=== PATIENT | female | born 1985 | race Caucasian/White ===

== ENCOUNTER 2024-06-13 10:46 | Day surgery (SDC) | payer OTHER ==
[2024-06-13] MEDS ORDERED: LACTATED RINGERS 1,000 ML BAG ONE (11:30)
[2024-06-13] MEDS ORDERED: PROPOFOL 10 MG/ML 20 ML VIAL IV ONE (12:10)
[2024-06-13] MEDS ORDERED: LIDOCAINE 1% INJ 10MG/ML (20 ML MDV) ONE (12:10)
--- NOTE | 2024-08-22 17:19 | P.GSHP ---
History of Present Illness H&P Date: 06/13/24 CHIEF COMPLAINT: GERD HISTORY OF PRESENT ILLNESS: The patient is a 39-year-old female who presents reports gastroesophageal reflux disease. Upper endoscopy was offered for further evaluation and management. PAST MEDICAL HISTORY: Please see list. PAST SURGICAL HISTORY: Please see list. MEDICATIONS: Please see list. ALLERGIES: Please see list. SOCIAL HISTORY: No illicit drug use FAMILY HISTORY: No reports of Crohn disease or ulcerative colitis. REVIEW OF ORGAN SYSTEMS: CONSTITUTIONAL: No reports of fevers or chills. GI: Denies any blood in stools or constipation. PHYSICAL EXAM: VITAL SIGNS: Stable GENERAL: Well-developed and pleasant in no acute distress. HEENT: No scleral icterus. Extraocular movements grossly intact. Moist buccal mucosa. NECK: Supple without lymphadenopathy. CHEST: Unlabored respirations. Equal bilateral excursions. CARDIOVASCULAR: Regular rate and rhythm. Distal 2+ pulses. ABDOMEN: Soft, nondistended. MUSCULOSKELETAL: No clubbing, cyanosis, or edema. ASSESSMENT: 1. Gastroesophageal reflux disease PLAN: 1. Recommend proceeding with an upper endoscopy Past Medical History Past Medical History: Fibromyalgia History of Any Multi-Drug Resistant Organisms: None Reported Past Surgical History: Section Additional Past Surgical History / Comment(s): c sectionx2 Past Anesthesia/Blood Transfusion Reactions: No Reported Reaction Past Psychological History: Anxiety, PTSD Smoking Status: Former smoker, Vaper Past Alcohol Use History: None Reported Past Drug Use History: Marijuana Additional Drug Use History / Comment(s): medical marijuana - Past Family History Mother Additional Family Medical History / Comment(s): depression Medications and Allergies Home Medications Medication Instructions Recorded Confirmed Type Cetirizine HCl [Zyrtec] 10 mg PO DAILY 05/04/24 08/10/24 History Omeprazole 40 mg PO DAILY 05/04/24 08/10/24 History Allergies Allergy/AdvReac Type Severity Reaction Status Date / Time No Known Allergies Allergy Verified 08/10/24 15:10
--- NOTE | 2024-08-22 17:23 | P.PCN ---
Date of Procedure: 06/13/24 Description of Procedure: PREOPERATIVE DIAGNOSIS: Gastroesophageal reflux disease. Morbid obesity. POSTOPERATIVE DIAGNOSIS: Gastroesophageal reflux disease. Morbid obesity. Gastritis. OPERATION: Esophagogastroduodenoscopy with biopsies along esophagus, antrum and duodenum SURGEON: Angy Perez MD ANESTHESIA: MAC. INDICATIONS: The patient is a 47-year-old female who presents with reflux disease. Benefits and risks of the procedure were described. Informed consent was obtained. DESCRIPTION: The patient was brought into the endoscopy suite and laid in the left lateral decubitus position. An Olympus gastroscope was passed along the posterior oropharynx down to the distal esophagus where the squamocolumnar junction was encountered at 35 cm from the incisors. The stomach was entered and no bile reflux was found. Additional findings are listed below. Biopsies with cold forceps were obtained of the antrum. The first through third portion of the duodenum was examined. Retroflexion of the scope confirmed Hill grade 2 lower esophageal valve. The squamocolumnar junction demonstrated LA grade A erosive esophagitis. The stomach was desufflated. The patient tolerated the procedure well. FINDINGS: Squamocolumnar junction 35 cm from the incisors. Diaphragmatic hiatus at 35 cm. Hill grade 2 lower esophageal valve. LA grade A erosive esophagitis. Biopsies obtained Biopsies obtained of the duodenum. Chronic gastritis with biopsies obtained. RECOMMENDATIONS: Upper endoscopy as needed.
== END 2024-06-13 12:59 ==
LOC: ORWHC2ENDO 10:46
PROVIDERS: ATTEND Surgery Plastic and Reconstructive Surgery
DX: K29.50 Unspecified chronic gastritis without bleeding (principal); K21.00 Gastro-esophageal reflux disease with esophagitis, without bleeding; K29.80 Duodenitis without bleeding; E66.01 Morbid (severe) obesity due to excess calories; M79.7 Fibromyalgia; Z87.891 Personal history of nicotine dependence
CPT/HCPCS: 43239; 81025; 88305

== ENCOUNTER → 2024-08-10 | Outpatient (CLI) | payer OTHER ==
[2024-08-10 15:14] VITALS: BP 115/81; PULSE 74; RESP 16; TEMP 98.3; BMI 48.9
--- NOTE | 2024-08-10 15:24 | P.BASOAP ---
Subjective Progress Note Date: 08/10/24 She has gained weight 13 pounds in 3 months. Breakfast oatimeal, fruit, orange juice. NO snacks. Path negative. Yogurt. Dinner chicken and risk. 50 grams of protein. Needs 86 grams. Labs review. Missing labs, EKG, and urine. She wants the sleeve, Objective - Vital Signs Vital signs: Vital Signs Temp 98.3 F 08/10/24 15:10 Pulse 74 08/10/24 15:10 Resp 16 08/10/24 15:10 BP 115/81 08/10/24 15:10 Pulse Ox FiO2 Intake & Output 08/09/24 08/10/24 08/10/24 18:59 06:59 18:59 Weight 123.377 kg Assessment/Plan Plan: Date: 08/10/24 Initial Weight: 117.736 kg Initial BMI: 46.7 Current Weight: 123.377 kg Current BMI: 48.9 Type of Surgery: Total Volume in Band: Previous Volume: Volume Removed: Volume Added: Band Size:
== END ==
LOC: BARWHC3 14:16
PROVIDERS: ATTEND Surgery Plastic and Reconstructive Surgery
DX: E66.01 Morbid (severe) obesity due to excess calories (principal); Z68.42 Body mass index [BMI] 45.0-49.9, adult
CPT/HCPCS: 99211

== ENCOUNTER → 2025-01-20 | Outpatient (CLI) | payer OTHER ==
[2025-01-20 13:04] LABS: Partial Thromboplastin Time 22.2 sec (22.0-30.0); Prothrombin Time 10.8 sec (10.0-12.5)
[2025-01-20 18:19] LABS: HCT 43.7 % (37.2-46.3); HGB 13.6 g/dL (12.0-15.0); MCH 28.2 pg (27.0-32.0); MCHC 31.1 g/dL (32.0-37.0); MCV 90.7 FL (80.0-97.0); Mean Platelet Volume 11.6 FL (9.5-12.2); NRBC Per 100 WBC 0 X 10*3/uL (0.00-0.01); Platelet Count 332 X 10*3/uL (140-440); RBC 4.82 X 10*6/uL (4.10-5.20); RDW 13.6 % (11.5-14.5); WBC 7.26 X 10*3/uL (4.50-10.00)
[2025-01-20 19:19] LABS: Chol/HDL Ratio 5.64 Ratio; LDL Cholesterol,Calculated 106.6 mg/dL (0.0-131.0); Magnesium 2.1 mg/dL (1.5-2.4)
[2025-01-20 19:20] LABS: % Iron Saturation 10.03 (12.00-45.00); ALT 43 U/L (8-44); AST 26 U/L (13-35); Albumin 4.1 g/dL (3.8-4.9); Albumin/Globulin Ratio 1.78 Ratio (1.60-3.17); Alkaline Phosphatase 80 U/L (41-126); BUN/Creat Ratio 25.88 Ratio (12.00-20.00); Blood Urea Nitrogen 20.7 mg/dL (9.0-27.0); Calcium 9.4 mg/dL (8.7-10.3); Carbon Dioxide 22.5 mmol/L (21.6-31.8); Chloride 106 mmol/L (96-109); Ferritin 29.8 ng/mL (10.0-291.0); Globulin 2.3 g/dL (1.6-3.3); Glucose 99 mg/dL (70-110); Iron 35 UG/DL (50-170); Phosphorus 3.2 mg/dL (2.4-5.1); Potassium 4.6 mmol/L (3.5-5.5); Sodium 140 mmol/L (135-145); Total Bilirubin 0.2 mg/dL (0.3-1.2); Total Iron Binding Capacity 349 UG/DL (228-460); Total Protein 6.4 g/dL (6.2-8.2)
[2025-01-20 21:45] LABS: Prealbumin 21.2 mg/dL (18.0-42.0)
== END | disposition home or self-care (01) ==
LOC: LABWHC1 11:54
PROVIDERS: ATTEND Surgery Plastic and Reconstructive Surgery
DX: E55.9 Vitamin D deficiency, unspecified (principal); E66.01 Morbid (severe) obesity due to excess calories; E44.0 Moderate protein-calorie malnutrition; E45 Retarded development following protein-calorie malnutrition; E89.1 Postprocedural hypoinsulinemia; D50.8 Other iron deficiency anemias; D50.9 Iron deficiency anemia, unspecified; K74.1 Hepatic sclerosis; N19 Unspecified kidney failure; K50.90 Crohn's disease, unspecified, without complications; T56.894A Toxic effect of other metals, undetermined, initial encounter
CPT/HCPCS: 84255; 84134; 84425; 80061; 80053; 82607; 82728; 82525; 82746; 83540; 83550; 83735; 84100; 84443; 84590; 84630; 85027; 85610; 85730; 82306; 83970; 80307; 93005; 36415; G0480; 80323

== ENCOUNTER 2025-01-30 09:57 | Day surgery (SDC) | payer OTHER ==
--- NOTE | 2025-01-30 07:50 | P.GSHP ---
History of Present Illness H&P Date: 01/30/25 CHIEF COMPLAINT: Morbid obesity HISTORY OF PRESENT ILLNESS: Vanessa Gibson is a 60-year-old female who comes with lifelong morbid obesity. As result of morbid obesity, she has developed osteoarthritis of the hips and knees. She has completed medical supervised weight loss. She completed medical including cardiac assessment. She has completed psychological risk assessment. All surgical options were reviewed. She elected for sleeve gastrectomy. At height of 5 feet 3 inches, her ideal body weight is 140 pounds. She comes in 256 pounds. Her body mass index is 45.3. She is 116 pounds overweight. Her highest weight 273 pounds, body mass index 48.4. PAST MEDICAL HISTORY: 1. Morbid obesity due to excess calories 2. Body mass index of 48.4 3. Osteoarthritis of the knees. 4. Osteoarthritis of the lower back. 5. Gastroesophageal reflux disease 6. Fibromyalgia 7. Migraines 8. Generalized anxiety disorder 9. Posttraumatic stress disorder PAST SURGICAL HISTORY: 1. Upper endoscopy 2. section HOME MEDICATIONS: Home Medications Medication Instructions Recorded Confirmed Omeprazole 40 mg PO DAILY 05/04/24 01/26/25 Brexpiprazole [Rexulti] 10 mg PO DAILY 01/25/25 01/26/25 Fexofenadine HCl [Maine Allergy] 180 mg PO DAILY 01/25/25 01/26/25 Propranolol [Inderal] 10 mg PO DAILY 01/25/25 01/26/25 Topiramate 25 mg PO BID 01/25/25 01/26/25 lamoTRIgine [LaMICtal] 100 mg PO DAILY 01/25/25 01/26/25 ALLERGIES: Allergies Allergy/AdvReac Type Severity Reaction Status Date / Time No Known Allergies Allergy Verified 01/26/25 13:47 SOCIAL HISTORY: Past tobacco use. FAMILY HISTORY: No family history of ulcerative colitis disease or Crohn's disease. Family history of morbid obesity. No lupus in the family. No reports of stomach or esophageal cancer. REVIEW OF ORGAN SYSTEMS: CONSTITUTIONAL: At height of 5 feet 3 inches, her ideal body weight is 140 pounds. She comes in 256 pounds. Her body mass index is 45.3. She is 116 pounds overweight. Her highest weight 273 pounds, body mass index 48.4. HEENT: Denies any active troubles with vision or hearing. ENDOCRINE: Denies diabetes. Denies hypothyroidism. CARDIOVASCULAR: Past reports of palpitations or heart attacks or chest pain. RESPIRATORY: Has daytime somnolence. GASTROINTESTINAL: Denies any bright red blood per rectum. Has gastroesophageal reflux disease. MUSCULOSKELETAL: Has lower back pain and joint pain. Has osteoarthritis of the knees. NEURO: No headaches. No seizure disorders. PSYCH: Has depression. No suicidal ideation. RHEUMATOLOGIC: No lupus. No rheumatoid arthritis. HEMATOLOGIC: Denies any abnormal bleeding or bruising. No personal history of DVTs. SKIN: Has rash. No skin cancer. PHYSICAL EXAM: VITAL SIGNS: Height 5 foot 3 inches, weight 256 pounds. BMI 45.3 GENERAL: Well-developed in no acute distress. HEENT: No scleral icterus. Extraocular movements grossly intact. Hears conversational speech. No nasal drainage. NECK: Supple without lymphadenopathy. CHEST: Nonlabored respirations with equal bilateral excursions. CARDIOVASCULAR: Regular rate and regular rhythm. Distal 2+ pulses. ABDOMEN: Obese, soft, nontender, nondistended. MUSCULOSKELETAL: No clubbing, cyanosis. NEURO: No focal or lateralizing signs. Cranial nerves 2 through 12 grossly within normal limits. PSYCH: Appropriate affect. Alert and oriented to person, place and time. SKIN: Good skin turgor. Well perfused. ASSESSMENT: 1. Morbid obesity due to excess calories 2. Body mass index of 48.4 3. Osteoarthritis of the knees. 4. Osteoarthritis of the lower back. 5. Gastroesophageal reflux disease 6. Fibromyalgia 7. Migraines 8. Generalized anxiety disorder 9. Posttraumatic stress disorder PLAN: 1. Bariatric options between a sleeve, band and a Alejandrina-en-Y gastric bypass were reviewed in detail. The patient elected for sleeve gastrectomy. Robotic assisted approach described. 2. The [place] [facility] Data was also reviewed with benefits and risks as described. 3. An 8 page second-generation bariatric consent form was reviewed in detail including potential of bleeding, infection, leaks, adequate weight loss, nutritional deficiencies which the patient demonstrated understanding of the risks. 4. A 2 week high-protein low caloric 800 kcal diet described to address hepatomegaly. 5. Preoperative labs including complete metabolic panel and CBC with type and screen recommended. 6. DVT prophylaxis per [place] [facility]. 7. Antibiotic prophylaxis. 8. Inpatient hospitalization anticipated for more than 2 nights. 9. All questions and concerns were addressed with the patient. 10. Overall, patient has expressed understanding of bariatric care including postoperative diet and commitment of lifestyle. Patient should benefit from surgical intervention for correction of her morbid obesity. Past Medical History Past Medical History: Fibromyalgia, GERD/Reflux, Osteoarthritis (OA) Additional Past Medical History / Comment(s): hand tremors, migraines History of Any Multi-Drug Resistant Organisms: None Reported Past Surgical History: Section Additional Past Surgical History / Comment(s): c sectionx2, EGD Past Anesthesia/Blood Transfusion Reactions: No Reported Reaction Smoking Status: Former smoker - Past Family History Mother Additional Family Medical History / Comment(s): depression Medications and Allergies Home Medications Medication Instructions Recorded Confirmed Type Omeprazole 40 mg PO DAILY 05/04/24 01/26/25 History Brexpiprazole [Rexulti] 10 mg PO DAILY 01/25/25 01/26/25 History Fexofenadine HCl [Maine Allergy] 180 mg PO DAILY 01/25/25 01/26/25 History Propranolol [Inderal] 10 mg PO DAILY 01/25/25 01/26/25 History Topiramate 25 mg PO BID 01/25/25 01/26/25 History lamoTRIgine [LaMICtal] 100 mg PO DAILY 01/25/25 01/26/25 History Allergies Allergy/AdvReac Type Severity Reaction Status Date / Time No Known Allergies Allergy Verified 01/26/25 13:47
[~2025-01-30 09:57] MED LIST: HYDROmorphone 0.5 MG/0.5 ML SYRINGE IVP PRN; SODIUM CHLORIDE 0.9% 1,000 ML IV ONE; ceFAZolin 2 GM in DEXTROSE 5% IN WATER 50 ML IVPB PRN
[2025-01-30] MEDS: IV FLUID CONTINUATION 1,000 ML IV ONE ×3 (10:30→10:45)
[2025-01-30 10:43] VITALS: RESP 16; TEMP 97.9
[2025-01-30] MEDS: LACTATED RINGERS 1,000 ML IV SCH (10:49)
[2025-01-30] MEDS: ONDANSETRON 4 MG/2 ML VIAL IVP PRN (10:50)
[2025-01-30] MEDS: ACETAMINOPHEN TAB 500 MG TAB PO PRN (10:50)
[2025-01-30] MEDS: ENOXAPARIN 40 MG/0.4 ML SYRINGE SQ PRN (10:51)
[2025-01-30] MEDS: CHLORHEXIDINE GLUCONATE 15 ML CUP MUCOUS MEM STA (10:51)
[2025-01-30] MEDS: SCOPOLAMINE 1 MG/72 HR PATCH TRANSDERM STA (10:51)
[2025-01-30] MEDS: DEXAMETHASONE SOD PHOSPHATE 4 MG/ML 1 ML VIAL IVP STA (10:51)
[2025-01-30] MEDS: ALVIMOPAN 12 MG CAPSULE PO PRN (11:13)
[2025-01-30] MEDS: MIDAZOLAM 2 MG/2 ML VIAL IV PRN (11:23)
--- NOTE | 2025-01-30 11:32 | P.ANPRN ---
Procedure Note - Anesthesia - Nerve Block Performed Bilateral Erector Spinae Single Time Out Performed: Yes Date of Procedure: 01/30/25 Procedure Start Time: : Procedure Stop Time: :30 Location of Patient: PreOp Indication: Acute Post-Operative Pain, Requested by Surgeon Sedation Type: Sedate with meaningful contact maintained Preparation: Sterile Prep Position: Prone Needle Types: Pajunk Needle Gauge: 21 Ultrasound used to visualize needle placement: Yes Ultrasound used to observe medication spread: Yes Injectate: 0.5% Ropivacaine (see comment for volume) (20 ml + 10 ml NS + 4 mg Dexamethasone per side) Blood Aspirated: No Pain Paresthesia on Injection Noted: No Resistance on Injection: Normal Image Stored and Saved: Yes Events: Uneventful and Well Tolerated
[2025-01-30] MEDS: fentaNYL (PF) 50 MCG/ML 2 ML AMP IVP PRN (11:36)
[2025-01-30] MEDS: PANTOPRAZOLE 40 MG/10 ML VIAL IVP STA (11:45)
[2025-01-30 11:53] VITALS: BP 101/59; PULSE 73
--- NOTE | 2025-01-30 13:13 | P.PN ---
Progress Note - Text Progress Note Date: 01/30/25 Notified by bariatric life insurance salesperson regarding patient has new active primary insurance through [facility]. Patient reports that she was not aware of the policy. Additional information obtained through the insurance providers demonstrating policy was active from November 26 through the end of October 25, 2025. Although patient has authorization through [facility], [employer] is primary insurance. [facility] Medicaid is secondary. As such, new insurance details given to patient to correct her insurance policy. Case canceled due to lack of coverage for [facility] and providers are not in network with [facility] insurance.
--- NOTE | 2025-01-30 13:18 | P.PN ---
Progress Note - Text Progress Note Date: 01/30/25 To whom it may concern: Elodia Latif is under my general surgical care. Patient was admitted to the hospital today 01/30/2025. She may return to work 01/31/2025. Patient will be scheduled for surgery for future date. Regards, Angy Perez MD FACS
== END 2025-01-30 13:26 ==
LOC: OR 09:57 → EDSTATUS 11:15 → UNDODISIN 13:26 → OR 13:26
PROVIDERS: ATTEND Surgery Plastic and Reconstructive Surgery
DX: E66.01 Morbid (severe) obesity due to excess calories (principal); K21.9 Gastro-esophageal reflux disease without esophagitis; M79.7 Fibromyalgia; F41.1 Generalized anxiety disorder; F43.10 Post-traumatic stress disorder, unspecified; M17.0 Bilateral primary osteoarthritis of knee; M47.816 Spondylosis without myelopathy or radiculopathy, lumbar region; G43.909 Migraine, unspecified, not intractable, without status migrainosus; M16.0 Bilateral primary osteoarthritis of hip; Z68.42 Body mass index [BMI] 45.0-49.9, adult; Z79.899 Other long term (current) drug therapy; Z87.891 Personal history of nicotine dependence; Z53.8 Procedure and treatment not carried out for other reasons; Z83.49 Family history of other endocrine, nutritional and metabolic diseases
CPT/HCPCS: 64468; 86900; 86901; 86850; J2250; J1100; J2405; J1650; J3010; J2470

== ENCOUNTER 2025-02-06 11:59 | Inpatient (IN) | payer OTHER ==
--- NOTE | 2025-02-06 09:40 | P.GSHP ---
History of Present Illness H&P Date: 02/06/25 CHIEF COMPLAINT: Morbid obesity HISTORY OF PRESENT ILLNESS: Elodia Latif is 39 year old female who comes with lifelong morbid obesity. As result of morbid obesity, she has developed osteoarthritis of the hips and knees. She has completed medical supervised weight loss. She completed medical including cardiac assessment. She has completed psychological risk assessment. All surgical options were reviewed. She elected for sleeve gastrectomy. Prior, patient's surgery had been canceled due to insurance issues 1 week ago. At height of 5 feet 3 inches, her ideal body weight is 140 pounds. She comes in 254 pounds. Her body mass index is 45.2. She is 114 pounds overweight. Her highest weight 273 pounds, body mass index 48.4. PAST MEDICAL HISTORY: 1. Morbid obesity due to excess calories 2. Body mass index of 48.4 3. Osteoarthritis of the knees. 4. Osteoarthritis of the lower back. 5. Gastroesophageal reflux disease 6. Fibromyalgia 7. Migraines 8. Generalized anxiety disorder 9. Posttraumatic stress disorder PAST SURGICAL HISTORY: 1. Upper endoscopy 2. section HOME MEDICATIONS: ALLERGIES: SOCIAL HISTORY: Past tobacco use. FAMILY HISTORY: No family history of ulcerative colitis disease or Crohn's disease. Family history of morbid obesity. No lupus in the family. No reports of stomach or esophageal cancer. REVIEW OF ORGAN SYSTEMS: CONSTITUTIONAL: At height of 5 feet 3 inches, her ideal body weight is 140 pounds. She comes in 256 pounds. Her body mass index is 45.3. She is 116 pounds overweight. Her highest weight 273 pounds, body mass index 48.4. HEENT: Denies any active troubles with vision or hearing. ENDOCRINE: Denies diabetes. Denies hypothyroidism. CARDIOVASCULAR: Past reports of palpitations or heart attacks or chest pain. RESPIRATORY: Has daytime somnolence. GASTROINTESTINAL: Denies any bright red blood per rectum. Has gastroesophageal reflux disease. MUSCULOSKELETAL: Has lower back pain and joint pain. Has osteoarthritis of the knees. NEURO: No headaches. No seizure disorders. PSYCH: Has depression. No suicidal ideation. RHEUMATOLOGIC: No lupus. No rheumatoid arthritis. HEMATOLOGIC: Denies any abnormal bleeding or bruising. No personal history of DVTs. SKIN: Has rash. No skin cancer. PHYSICAL EXAM: VITAL SIGNS: Height 5 foot 3 inches, weight 254 pounds. BMI 45.2 GENERAL: Well-developed in no acute distress. HEENT: No scleral icterus. Extraocular movements grossly intact. Hears conversational speech. No nasal drainage. NECK: Supple without lymphadenopathy. CHEST: Nonlabored respirations with equal bilateral excursions. CARDIOVASCULAR: Regular rate and regular rhythm. Distal 2+ pulses. ABDOMEN: Obese, soft, nontender, nondistended. MUSCULOSKELETAL: No clubbing, cyanosis. NEURO: No focal or lateralizing signs. Cranial nerves 2 through 12 grossly within normal limits. PSYCH: Appropriate affect. Alert and oriented to person, place and time. SKIN: Good skin turgor. Well perfused. ASSESSMENT: 1. Morbid obesity due to excess calories 2. Body mass index of 48.4 3. Osteoarthritis of the knees. 4. Osteoarthritis of the lower back. 5. Gastroesophageal reflux disease 6. Fibromyalgia 7. Migraines 8. Generalized anxiety disorder 9. Posttraumatic stress disorder PLAN: 1. Bariatric options between a sleeve, band and a Alejandrina-en-Y gastric bypass were reviewed in detail. The patient elected for sleeve gastrectomy. Robotic assisted approach described. 2. The [place] [facility] Data was also reviewed with benefits and risks as described. 3. An 8 page second-generation bariatric consent form was reviewed in detail including potential of bleeding, infection, leaks, adequate weight loss, nutritional deficiencies which the patient demonstrated understanding of the risks. 4. A 2 week high-protein low caloric 800 kcal diet described to address hepatomegaly. 5. Preoperative labs including complete metabolic panel and CBC with type and screen recommended. 6. DVT prophylaxis per [place] [facility]. 7. Antibiotic prophylaxis. 8. Inpatient hospitalization anticipated for more than 2 nights. 9. All questions and concerns were addressed with the patient. 10. Overall, patient has expressed understanding of bariatric care including postoperative diet and commitment of lifestyle. Patient should benefit from surgical intervention for correction of her morbid obesity. Past Medical History Past Medical History: Fibromyalgia, GERD/Reflux, Osteoarthritis (OA) Additional Past Medical History / Comment(s): Hand tremors, migraines. History of Any Multi-Drug Resistant Organisms: None Reported Past Surgical History: Section Additional Past Surgical History / Comment(s): Section X2, EGD. Past Anesthesia/Blood Transfusion Reactions: No Reported Reaction Past Psychological History: Anxiety, PTSD Smoking Status: Former smoker Past Alcohol Use History: None Reported Additional Past Alcohol Use History / Comment(s): Not smoking or vaping currently, quit smoking 1 yr ago, quit vaping >1 month ago, smoked 10-12 yrs, 1ppd. Past Drug Use History: Marijuana Additional Drug Use History / Comment(s): Not using marijuana at this time. - Past Family History Mother Additional Family Medical History / Comment(s): Depression. Medications and Allergies Home Medications Medication Instructions Recorded Confirmed Type Omeprazole 40 mg PO DAILY 05/04/24 02/02/25 History Brexpiprazole [Rexulti] 10 mg PO DAILY 01/25/25 02/02/25 History Fexofenadine HCl [Maine Allergy] 180 mg PO DAILY 01/25/25 02/02/25 History Propranolol [Inderal] 10 mg PO DAILY 01/25/25 02/02/25 History Topiramate 25 mg PO BID 01/25/25 02/02/25 History lamoTRIgine [LaMICtal] 100 mg PO DAILY 01/25/25 02/02/25 History Allergies Allergy/AdvReac Type Severity Reaction Status Date / Time No Known Allergies Allergy Verified 02/02/25 09:07
[~2025-02-06 11:59] MED LIST changes: +LIDOCAINE 1% (10MG/ML) FOR IV START INTRADERMA PRN; +ONDANSETRON 4 MG/2 ML VIAL IVP PRN; -SODIUM CHLORIDE 0.9% 1,000 ML IV ONE; -ceFAZolin 2 GM in DEXTROSE 5% IN WATER 50 ML IVPB PRN
[2025-02-06] MEDS: LACTATED RINGERS 1,000 ML IV SCH (12:35)
[2025-02-06] MEDS: IV FLUID CONTINUATION 1,000 ML IV ONE (12:42)
[2025-02-06] MEDS: CHLORHEXIDINE GLUCONATE 15 ML CUP MUCOUS MEM STA (12:52)
[2025-02-06] MEDS: ALVIMOPAN 12 MG CAPSULE PO PRN (12:54)
[2025-02-06] MEDS: ACETAMINOPHEN TAB 500 MG TAB PO PRN (12:54)
[2025-02-06] MEDS: ONDANSETRON 4 MG/2 ML VIAL IVP ONE (13:09)
[2025-02-06] MEDS: PANTOPRAZOLE 40 MG/10 ML VIAL IVP STA (13:09)
[2025-02-06] MEDS: DEXAMETHASONE SOD PHOSPHATE 4 MG/ML 1 ML VIAL IV ONE (13:09)
[2025-02-06] MEDS: SCOPOLAMINE 1 MG/72 HR PATCH TRANSDERM ONE (13:09)
[2025-02-06] MEDS: MIDAZOLAM 2 MG/2 ML VIAL IV ONE (13:24)
[2025-02-06] MEDS: fentaNYL (PF) 50 MCG/ML 2 ML AMP IVP PRN (13:26)
--- NOTE | 2025-02-06 13:42 | P.ANPRN ---
Procedure Note - Anesthesia - Nerve Block Performed Bilateral Erector Spinae Single Time Out Performed: Yes Date of Procedure: 02/06/25 Procedure Start Time: 13:16 Procedure Stop Time: :21 Location of Patient: PreOp Indication: Acute Post-Operative Pain, Analgesia, Requested by Surgeon Sedation Type: Sedate with meaningful contact maintained Preparation: Sterile Prep Position: Prone Catheter: None Needle Types: Pajunk Needle Gauge: 21 Ultrasound used to visualize needle placement: Yes Ultrasound used to observe medication spread: Yes Injectate: 0.5% Ropivacaine (see comment for volume) ([id number], Needle level T8-- Each side) Blood Aspirated: No Pain Paresthesia on Injection Noted: No Resistance on Injection: Normal Image Stored and Saved: Yes Events: Uneventful and Well Tolerated
[2025-02-06] MEDS: ENOXAPARIN 40 MG/0.4 ML SYRINGE SQ PRN (13:43)
[2025-02-06] MEDS ORDERED: ROPIVACAINE 5 MG/ML 30 ML VIAL ONE (13:58)
[2025-02-06] MEDS ORDERED: LIDOCAINE 1% INJ 10MG/ML (20 ML MDV) ONE (13:58)
[2025-02-06] MEDS ORDERED: GLYCOPYRROLATE 0.2 MG/ML 2 ML VIAL ONE (13:58)
[2025-02-06] MEDS ORDERED: SUCCINYLCHOLINE CHLORIDE 200 MG/10 ML VIAL IV ONE (13:58)
[2025-02-06] MEDS ORDERED: fentaNYL (PF) 50 MCG/ML 2 ML AMP ONE (13:58)
[2025-02-06] MEDS ORDERED: KETAMINE HCL IN 0.9 % NACL 50 MG/5 ML SYRINGE ONE (13:58)
[2025-02-06] MEDS ORDERED: ROCURONIUM 10 MG/ML (5 ML VIAL) IV ONE (13:58)
[2025-02-06] MEDS ORDERED: NEOSTIGMINE 1 MG/ML 10 ML VIAL ONE (13:58)
[2025-02-06] MEDS ORDERED: MIDAZOLAM 2 MG/2 ML VIAL ONE (13:58)
[2025-02-06] MEDS ORDERED: PROPOFOL 10 MG/ML 20 ML VIAL IV ONE (13:58)
[2025-02-06] MEDS: ceFAZolin 2 GM in DEXTROSE 5% IN WATER 50 ML IVPB PRN (14:03)
[2025-02-06] MEDS: LIDOCAINE 1%-EPI 1:100,000 20 ML VIAL SQ ONE (14:31)
[2025-02-06] MEDS: LACTATED RINGERS 1,000 ML IV ONE (15:04)
[2025-02-06] MEDS ORDERED: NALOXONE 0.4 MG/ML 1 ML VIAL IV PRN (15:51)
[2025-02-06] MEDS ORDERED: HYDROmorphone 2 MG/ML 1 ML SYRINGE IVP PRN (15:53)
[2025-02-06] MEDS: HYDROmorphone 0.5 MG/0.5 ML SYRINGE IVP ONE ×2 (15:54→16:20)
--- NOTE | 2025-02-06 15:58 | P.OP ---
Date of Procedure: 02/06/25 Description of Procedure: SURGEON: NICA ASH MD PREOPERATIVE DIAGNOSES: 1. Morbid obesity due to excess calories 2. Body mass index of 48.4 3. Osteoarthritis of the knees. 4. Osteoarthritis of the lower back. 5. Gastroesophageal reflux disease 6. Fibromyalgia 7. Migraines 8. Generalized anxiety disorder 9. Posttraumatic stress disorder POSTOPERATIVE DIAGNOSES: 1. Morbid obesity due to excess calories 2. Body mass index of 48.4 3. Osteoarthritis of the knees. 4. Osteoarthritis of the lower back. 5. Gastroesophageal reflux disease 6. Fibromyalgia 7. Migraines 8. Generalized anxiety disorder 9. Posttraumatic stress disorder 10. Hepatomegaly OPERATION: 1. Robotic assisted daVinci Xi laparoscopic sleeve gastrectomy with 40-[place]er bougie, multiport. 2. Intraoperative esophagogastroduodenoscopy. ANESTHESIA: Gen. local anesthetic ESTIMATED BLOOD LOSS: 5 mL SPECIMENS REMOVED: Sleeve gastrectomy COMPLICATIONS: None. FINDINGS: 1. Patent pylorus following sleeve gastrectomy including negative intraoperative esophagogastrojejunoscopy leak test. 2. No large hiatus hernia. 3. Total of 5 staplers used including 1 - 60 mm green, 4 - 60 mm blue robot loads used to create the gastric sleeve. 4. Sleeve gastrectomy, 26 x 5 cm INDICATIONS: Elodia Latif is 39 year old female who comes with lifelong morbid obesity. As result of morbid obesity, she has developed osteoarthritis of the hips and knees. She has completed medical supervised weight loss. She completed medical including cardiac assessment. She has completed psychological risk assessment. All surgical options were reviewed. She elected for sleeve gastrectomy. At height of 5 feet 3 inches, her ideal body weight is 140 pounds. She comes in 252 pounds. Her body mass index is 44.8 She is 112 pounds overweight. Her highest weight 273 pounds, body mass index 48.4. All surgical options for morbid obesity had been described using the [place] bariatric surgery collaborative comorbidity resolution including complication risk score. A second-generation bariatric consent form was described in detail including the possibility of protein malnutrition, leaks, gastric stricture, venous thrombosis, gastroesophageal reflux disease, need for further surgery for which she demonstrated understanding. Benefits and risks of the procedure were described at length. Informed consent was obtained. DESCRIPTION: The patient was brought into the operating room theater. Preo peratively she had received Lovenox subcutaneously for DVT prophylaxis. Additionally she had Peridex oral solution as an oral decontaminant. After general induction, the abdomen was prepped and draped in standard sterile fashion. An Ioban draping was placed along the abdomen. A robotic da Jass Xi system was prepped and primed. At 15 cm from the xiphoid, proposed port sites were marked with indelible marker along the anterior axillary line bilaterally, mid axillary line bilaterally with each ports were marked 10 to 15 cm from each other. The robotic stapler port was marked for the right midclavicular line. A 5 mm 0 degrees laparoscopic trocar entry was performed along the left upper quadrant. The abdomen was insufflated to 15 mmHg pressure was tolerated well. Diagnostic laparoscopy demonstrated no injury to bowel, viscera, or mesentery. No evidence of large hiatus hernia was identified. The liver was mildly enlarged despite her 2-week high-protein low carbohydrate diet. A 8 mm port was placed along the left upper abdominal wall after exchanging the 5 mm port. A separate 8 mm port was placed along the left lateral abdominal wall. Please note that the ports were placed at least 20 cm away from the target anatomy. Care was taken to check each robotic arms were safely away from collision with the bed or the patient. At the epigastrium, a medium sized John liver retractor was placed under direct visualization with the [employer] Process Helper placed under the right shoulder of the patient. Next, 12-mm robot stapler port was placed along the right upper quadrant. The camera 8-mm port was maintained along the epigastrium. The patient was repositioned in reverse Trendelenburg position at 25-degrees after lowering the bed. The robot was docked along the left side of the patient. Using a grasper for arm 4, a vessel sealer for arm 3, including grasper for arm 1, the robotic system was docked and primed as described. Instruments were interchanged by the community assistant for stapler loads. The camera was placed at 30- degrees down. I had sat at the console. The pylorus was identified and 6 cm proximally along the greater curvature of the stomach, the short gastrics were mobilized upwards to the angle of His using a vessel sealer. Hemostasis was excellent during this portion of the procedure. Next, the upper pole of the stomach was adherent to the left prem, which was gently dissected free using atraumatic grasper. I went to the head of the bed and placed 40-[place] blunt bougie into the stomach. The bougie was readjusted by the nurse managed care coordinator. Robotic stapler green 60 mm x 1, and blue 60 mm loads x 4 were used to create the sleeve. Initial firing was across the antrum of the stomach towards the angle of His. The staple line was linear without corkscrewing. The space from the angularis incisura of the sleeve was approximately 4 cm. I then went to the head of the bed to perform the intraoperative esophagogastroduodenoscopy. The bougie was withdrawn. The upper pole of the stomach was bathed using normal saline solution. The scope was withdrawn with careful inspection along the staple line for which no leaks were found along the entire length. The pylorus was widely patent. No acute ulcerations were identified. Additionally,the sleeve was completely hemostatic without any encroachment along the angularis incisura. Its topology was a soft "J". No stricture was encountered upon placement of the scope. The GI tract was desufflated. The patient tolerated this portion of the procedure well. The scope was completely withdrawn. The robot was undocked. I then rescrubbed into case, whereby the irrigation fluid was aspirated from the abdominal cavity. Tisseel fibrin sealant was placed along the entire staple length. Once dried the John liver retractor was removed. Attention was now brought to removal of the specimen. The distal end of the sleeve gastrectomy specimen was brought out through the 12 mm port at the left upper quadrant. The specimen was gently removed en total. No contamination had occurred during this process. All instruments and pneumoperitoneum including irrigation fluid was removed from the abdominal cavity. The 12 mm port site was closed using 0-Vicryl and Roberto Waldrop and irrigated with diluted hydrogen peroxide. The final incisions were closed using subcuticular interrupted suture of 4-0 Monocryl. Dermabond was applied to the skin once the skin had been cleansed. OptiFoam dressing was placed along the stomach extraction site. The sleeve specimen was measured and checked also for leaks which none were found. At the end of the procedure, needle, sponge, and instrument count was verified correct by the surgical coordinator. The patient was taken to the postanesthesia care unit in stable condition. The patient had tolerated the procedure well.
[2025-02-06] MEDS: droPERidol 2.5 MG/ML VIAL IVP ONE ×2 (16:10→20:37)
[2025-02-06] MEDS: ALBUTEROL NEBULIZED 2.5 MG/3 ML INHALATION SCH (17:03)
[2025-02-06] MEDS: DEXAMETHASONE SOD PHOSPHATE 10 MG/ML 1 ML VIAL IVP STA (20:38)
[2025-02-06] MEDS: 0.9% NACL WITH KCL 20 MEQ/L 1,000 ML IV SCH (20:45)
[2025-02-06] MEDS: fentaNYL PCA 500 MCG/50 ML BAG IV SCH (20:45)
[2025-02-06] MEDS: ACETAMINOPHEN IV (For NPO) 1,000 MG in EMPTY BAG 1 BAG IVPB SCH (23:05)
[2025-02-06] MEDS: DEXAMETHASONE SOD PHOSPHATE 4 MG/ML 1 ML VIAL IVP SCH (23:05)
[2025-02-06] MEDS: ONDANSETRON 4 MG/2 ML VIAL IVP SCH (23:06)
[2025-02-06] MEDS: SIMETHICONE 40 MG/0.6 ML DROPS 2,000 MG/30 ML BOTTLE PO SCH (23:06)
[2025-02-06] MEDS: HYOSCYAMINE ORAL DROPS 1.875 MG/15 ML BOTTLE PO SCH (23:06)
[2025-02-07] MEDS: SODIUM CHLORIDE 0.9% 1,000 ML IV SCH (00:14)
[2025-02-07] MEDS: PANTOPRAZOLE 40 MG/10 ML VIAL IVP SCH (00:15)
[2025-02-07] MEDS: ceFAZolin 2 GM in DEXTROSE 5% IN WATER 50 ML IVPB SCH (00:16)
[2025-02-07] MEDS: TOPIRAMATE 25 MG TAB PO SCH (00:22)
[2025-02-07 07:40] VITALS: BP 121/76; RESP 17; TEMP 98.7
[2025-02-07] MEDS: lamoTRIgine 100 MG TAB PO SCH (08:22)
[2025-02-07] MEDS: PROPRANOLOL 10 MG TAB PO SCH (08:22)
[2025-02-07] MEDS: ENOXAPARIN 40 MG/0.4 ML SYRINGE SQ SCH (08:24)
[2025-02-07 08:31] LABS: Blood Urea Nitrogen 12.2 mg/dL (9.0-27.0); Calcium 8.4 mg/dL (8.7-10.3); Carbon Dioxide 17.8 mmol/L (21.6-31.8); Chloride 107 mmol/L (96-109); Magnesium 1.8 mg/dL (1.5-2.4); Phosphorus 2.3 mg/dL (2.4-5.1); Potassium 4.6 mmol/L (3.5-5.5); Sodium 138 mmol/L (135-145)
[2025-02-07] MEDS: Brexpiprazole [Rexulti] 1 MG Tablet PO SCH (08:47)
[2025-02-07] MEDS ORDERED: NON FORMULARY DRUG (Brexpiprazole [Rexulti] 1 MG Tablet) PO SCH (09:00)
[2025-02-07 09:05] LABS: Basophils # (A) 0.01 X 10*3/uL (0.00-0.10); Basophils % (A) 0.1 %; Eosinophils # (A) 0 X 10*3/uL (0.04-0.35); Eosinophils % (A) 0 %; HCT 39.8 % (37.2-46.3); HGB 12.7 g/dL (12.0-15.0); Lymphocytes # (A) 0.75 X 10*3/uL (0.90-5.00); Lymphocytes % (A) 6.8 %; MCH 28.8 pg (27.0-32.0); MCHC 31.9 g/dL (32.0-37.0); MCV 90.2 FL (80.0-97.0); Mean Platelet Volume 11.8 FL (9.5-12.2); Monocytes % (A) 0.9 %; NRBC Per 100 WBC 0 X 10*3/uL (0.00-0.01); Neutrophils # (A) 10.13 X 10*3/uL (1.80-7.70); Neutrophils % (A) 91.8 %; Platelet Count 271 X 10*3/uL (140-440); RBC 4.41 X 10*6/uL (4.10-5.20); RDW 13.5 % (11.5-14.5); WBC 11.03 X 10*3/uL (4.50-10.00)
[2025-02-07] MEDS: 0.9% NACL WITH KCL 20 MEQ/L 1,000 ML IV SCH (10:23)
[2025-02-07 11:55] VITALS: BMI 44.8
[2025-02-07 12:30] VITALS: PULSE 72
--- NOTE | 2025-02-07 14:00 | P.DS ---
Providers Date of admission: 02/06/25 11:59 Expected date of discharge: 02/07/25 Attending physician: Angy Perez Primary care physician: Stated None Hospital Course: Discharge diagnosis 1. Morbid obesity due to excess calories 2. Body mass index of 48.4 3. Osteoarthritis of the knees. 4. Osteoarthritis of the lower back. 5. Gastroesophageal reflux disease 6. Fibromyalgia 7. Migraines 8. Generalized anxiety disorder 9. Posttraumatic stress disorder 10. Hepatomegaly Hospital course Elodia Latif is 39 year old female who comes with lifelong morbid obesity. She is status post robotic assisted laparoscopic sleeve gastrectomy. Patient tolerated surgery well. Her pain is controlled. She has been up and ambulating. She is tolerating her diet. Afebrile. Denies any difficulty urinating. She is stable for discharge. Physician Set Illustrator note has been reviewed by physician. Signing provider agrees with the documented findings, assessment, and plan of care. Patient Condition at Discharge: Stable Plan - Discharge Summary Discharge Rx Participant: Yes New Discharge Prescriptions: New bisacodyL [Dulcolax] 5 mg PO DAILY PRN #10 tab PRN Reason: Constipation Omeprazole [PriLOSEC] 40 mg PO DAILY #90 cap ursodioL [Ursodiol] 300 mg PO BID 30 Days #60 capsule Ondansetron Odt [Zofran Odt] 4 mg PO Q8HR PRN #9 tab PRN Reason: Nausea Acetaminophen Tab [Tylenol] 1,000 mg PO Q6HR PRN #30 tablet PRN Reason: Pain Cyclobenzaprine [Flexeril] 5 mg PO TID PRN 3 Days #9 tablet PRN Reason: Pain Simethicone 40 mg/0.6 ml Drops [Mylicon Drops] 40 mg PO PCHS PRN #30 ml PRN Reason: Gas Continue Fexofenadine HCl [[place] Allergy] 180 mg PO DAILY Brexpiprazole [Rexulti] 10 mg PO DAILY Topiramate 25 mg PO BID lamoTRIgine [LaMICtal] 100 mg PO DAILY Propranolol [Inderal] 10 mg PO DAILY Cetirizine HCl 10 mg PO Discontinued Omeprazole 40 mg PO DAILY Discharge Medication List Brexpiprazole [Rexulti] 10 mg PO DAILY 01/25/25 [History] Fexofenadine HCl [[place] Allergy] 180 mg PO DAILY 01/25/25 [History] Propranolol [Inderal] 10 mg PO DAILY 01/25/25 [History] Topiramate 25 mg PO BID 01/25/25 [History] lamoTRIgine [LaMICtal] 100 mg PO DAILY 01/25/25 [History] Cetirizine HCl 10 mg PO 02/06/25 [History] Acetaminophen Tab [Tylenol] 1,000 mg PO Q6HR PRN #30 tablet 02/07/25 [Rx] Cyclobenzaprine [Flexeril] 5 mg PO TID PRN 3 Days #9 tablet 02/07/25 [Rx] Omeprazole [PriLOSEC] 40 mg PO DAILY #90 cap 02/07/25 [Rx] Ondansetron Odt [Zofran Odt] 4 mg PO Q8HR PRN #9 tab 02/07/25 [Rx] Simethicone 40 mg/0.6 ml Drops [Mylicon Drops] 40 mg PO PCHS PRN #30 ml 02/07/25 [Rx] bisacodyL [Dulcolax] 5 mg PO DAILY PRN #10 tab 02/07/25 [Rx] ursodioL [Ursodiol] 300 mg PO BID 30 Days #60 capsule 02/07/25 [Rx] Follow up Appointment(s)/Referral(s): [facility] [NON-STAFF] - 1 Week [facility] [NON-STAFF] - 1 Week Bariatric [place], [place] [NON-STAFF] - 02/08/25 Activity/Diet/Wound Care/Special Instructions: Liquid diet only for 2 weeks No lifting over 4 pounds in 4 weeks May Shower. No soaking in bath tubs for 2 weeks Please notify your surgeon if you develop nausea and vomiting including new onset of abdominal pain. Continue to use incentive spirometry to prevent pneumonias. Please continue to ambulate at home to prevent blood clots in legs. Follow-up at the bariatric center. May shower. Dressings to be discontinued by surgeon in the office. Drink 64 oz of fluid daily. Start protein shakes on . Notify bariatric center for temp over 101.0, increased pain, drainage from incisions. No straws or carbonated beverages. Liquid diet only. Sugar content should be less than 6 g to avoid dumping syndrome. Take MOM for constipation. CRUSH, OPEN, OR CUT TABLETS LARGER THAN A SIZE OF A TIC TAC Discharge/Stand Alone Forms: Area PCPs Discharge Disposition: HOME SELF-CARE
== END 2025-02-07 17:23 | disposition home or self-care (01) | DRG 403 ==
LOC: 2ORMAIN 11:59 → 4SSUR 15:58
PROVIDERS: ADMIT Surgery Plastic and Reconstructive Surgery; ATTEND Surgery Plastic and Reconstructive Surgery
PROC: 0DJ08ZZ Inspection of Upper Intestinal Tract, Via Natural or Artificial Opening Endoscopic (ICD-10-PCS; 2025-02-06)
PROC: 8E0W4CZ Robotic Assisted Procedure of Trunk Region, Percutaneous Endoscopic Approach (ICD-10-PCS; 2025-02-06)
PROC: 3E0T3BZ Introduction of Anesthetic Agent into Peripheral Nerves and Plexi, Percutaneous Approach (ICD-10-PCS; 2025-02-06)
PROC: 0DB64Z3 Excision of Stomach, Percutaneous Endoscopic Approach, Vertical (ICD-10-PCS; principal; 2025-02-06 13:55)
DX: E66.01 Morbid (severe) obesity due to excess calories (principal); Z68.42 Body mass index [BMI] 45.0-49.9, adult; M17.0 Bilateral primary osteoarthritis of knee; M16.0 Bilateral primary osteoarthritis of hip; K21.9 Gastro-esophageal reflux disease without esophagitis; M79.7 Fibromyalgia; G43.909 Migraine, unspecified, not intractable, without status migrainosus; F41.1 Generalized anxiety disorder; F43.10 Post-traumatic stress disorder, unspecified; R16.0 Hepatomegaly, not elsewhere classified; Z87.891 Personal history of nicotine dependence
CPT/HCPCS: 64468; 80051; 81025; 82310; 82565; 83735; 84100; 84520; 85025; 88307; 94640

== ENCOUNTER → 2025-02-08 | Outpatient (CLI) | payer OTHER ==
--- NOTE | 2025-02-08 11:03 | FL ---
EXAMINATION TYPE: FL barium swallow DATE OF EXAM: 02/08/2025 CLINICAL HISTORY: Status post gastric sleeve Contrast: Omnipaque 350 50 mL The patient ingested contrast without difficulty or delay. Noted are postsurgical changes of gastric sleeve. There is no evidence for leak or obstruction. Contrast is noted within the duodenum. IMPRESSION: Post-surgical change of gastric sleeve without evidence for obstruction or leak at this point in time. [facility], , 02/08/2025 11:01 AM
== END | disposition home or self-care (01) ==
LOC: RADFLMAIN 09:49
PROVIDERS: ATTEND Surgery Plastic and Reconstructive Surgery
DX: R13.10 Dysphagia, unspecified (principal); Z98.84 Bariatric surgery status
CPT/HCPCS: 74220